=== PATIENT | male | born 1950 ===

== ENCOUNTER 2018-09-20 14:13 | Outpatient (CLI) | payer OTHER | END 2018-09-20 14:20 | disposition home or self-care (01) | LOC: RAD 14:13 | DX: J21.8 Acute bronchiolitis due to other specified organisms (principal) ==

== ENCOUNTER → 2018-11-04 | Outpatient (CLI) | payer OTHER | END | disposition home or self-care (01) | LOC: RAD 09:47 | DX: M54.5 Low back pain (principal) | CPT/HCPCS: 72148 ==

== ENCOUNTER 2018-12-16 13:14 | Outpatient (CLI) | payer OTHER | END 2018-12-16 13:26 | disposition home or self-care (01) | LOC: SONOGRAMA 13:14 | DX: N60.21 Fibroadenosis of right breast (principal); M10.9 Gout, unspecified ==

== ENCOUNTER → 2020-07-06 | Outpatient (CLI) | payer OTHER | END | disposition home or self-care (01) | LOC: RAD 09:48 | PROVIDERS: ATTEND General Practice | DX: M19.071 Primary osteoarthritis, right ankle and foot (principal); M77.32 Calcaneal spur, left foot; M79.672 Pain in left foot; M79.671 Pain in right foot; M25.571 Pain in right ankle and joints of right foot; M25.572 Pain in left ankle and joints of left foot ==

== ENCOUNTER 2020-10-27 10:25 | Outpatient (CLI) | payer OTHER | END 2020-10-27 10:31 | disposition home or self-care (01) | LOC: RAD 10:25 | PROVIDERS: ATTEND Internal Medicine Pulmonary Disease | DX: I49.8 Other specified cardiac arrhythmias (principal); G47.8 Other sleep disorders; J30.89 Other allergic rhinitis ==

== ENCOUNTER → 2020-12-28 | Outpatient (CLI) | payer OTHER | END | disposition home or self-care (01) | LOC: SONOGRAMA 08:57 | PROVIDERS: ATTEND Internal Medicine Gastroenterology | DX: K76.0 Fatty (change of) liver, not elsewhere classified (principal); R16.0 Hepatomegaly, not elsewhere classified ==

== ENCOUNTER 2021-04-07 08:00 | Outpatient (CLI) | payer OTHER | END 2021-04-07 08:30 | disposition home or self-care (01) | LOC: PPH VACUNA 08:00 | DX: Z23 Encounter for immunization (principal) ==

== ENCOUNTER 2022-04-21 08:26 | Outpatient (CLI) | payer OTHER | END 2022-04-21 08:31 | disposition home or self-care (01) | LOC: PPH VACUNA 08:26 | PROVIDERS: ATTEND Emergency Medicine Pediatric Emergency Medicine | DX: Z23 Encounter for immunization (principal) ==

== ENCOUNTER 2022-04-21 09:04 | Outpatient (CLI) | payer OTHER | END 2022-04-21 09:09 | disposition home or self-care (01) | LOC: RAD 09:04 | PROVIDERS: ATTEND Internal Medicine Cardiovascular Disease | DX: Z98.890 Other specified postprocedural states (principal) ==

== ENCOUNTER → 2022-12-12 00:15 | Outpatient (CLI) | payer OTHER | END | disposition home or self-care (01) | LOC: PPH VACUNA 00:15 | PROVIDERS: ATTEND Emergency Medicine Pediatric Emergency Medicine | DX: Z23 Encounter for immunization (principal) ==

== ENCOUNTER 2023-03-02 09:48 | Outpatient (CLI) | payer OTHER | END 2023-03-02 11:15 | disposition home or self-care (01) | LOC: RAD 09:48 | DX: S91.002D Unspecified open wound, left ankle, subsequent encounter (principal) ==

== ENCOUNTER 2023-05-17 08:59 | Outpatient (CLI) | payer OTHER | END 2023-05-17 14:17 | disposition home or self-care (01) | LOC: SONOGRAMA 08:59 | PROVIDERS: ATTEND Internal Medicine Cardiovascular Disease | DX: N18.9 Chronic kidney disease, unspecified (principal) ==

== ENCOUNTER 2024-03-15 10:30 | Outpatient (CLI) | payer OTHER | END 2024-03-15 10:33 | disposition home or self-care (01) | LOC: SONOGRAMA 10:30 | PROVIDERS: ATTEND Internal Medicine Gastroenterology | DX: R16.0 Hepatomegaly, not elsewhere classified (principal) ==

== ENCOUNTER 2024-10-22 06:42 | Outpatient (CLI) | payer OTHER | END 2024-10-22 07:10 | disposition home or self-care (01) | LOC: MRI 06:42 | PROVIDERS: ATTEND Radiology Diagnostic Radiology | DX: M54.16 Radiculopathy, lumbar region (principal) | CPT/HCPCS: 72148 ==